=== PATIENT | male | born 1985 | race Caucasian/White ===

== ENCOUNTER 2016-10-08 16:18 | Emergency (ER) | payer OTHER ==
[~2016-10-08] VITALS: Ht 180.3 cm; Wt 80.7 kg
[~2016-10-08 16:18] MED LIST: AMOXICILLIN500 MG PO; NOHOMEMEDS; PERCOCET 5/31 TABLET PO; TYLENOL WITH C1 EACH PO; ULTRAM50 MG PO; VOLTAREN 1% GE100 GM PO
[2016-10-08] MEDS ORDERED: FLEXERIL10 MG PO (18:29)
[2016-10-08] MEDS ORDERED: MOTRIN800 MG PO (18:30)
[2016-10-08 18:46] VITALS: BP 164/99
== END 2016-10-08 18:47 | disposition home or self-care (01) ==
LOC: EME 16:18
DX: S20.211A Contusion of right front wall of thorax, initial encounter (principal); S50.01XA Contusion of right elbow, initial encounter; W11.XXXA Fall on and from ladder, initial encounter; F17.200 Nicotine dependence, unspecified, uncomplicated
CPT/HCPCS: 71101; 73080; 99281; 99284

== ENCOUNTER 2017-08-23 13:47 | Emergency (ER) | payer OTHER ==
[~2017-08-23] VITALS: Ht 170.2 cm; Wt 76.2 kg
[~2017-08-23 13:47] MED LIST changes: +FLEXERIL10 MG PO; +MOTRIN800 MG PO
[2017-08-23] MEDS ORDERED: MOTRIN800 MG PO (16:00)
[2017-08-23] MEDS ORDERED: ULTRAM50 MG PO (16:01)
[2017-08-23 17:00] VITALS: BP 137/84
== END 2017-08-23 17:03 | disposition home or self-care (01) ==
LOC: EME 13:47
PROC: 2W3LX1Z Immobilization of Right Lower Extremity using Splint (ICD-10-PCS; principal; 2017-08-23)
DX: S82.831A Other fracture of upper and lower end of right fibula, initial encounter for closed fracture (principal); Y93.72 Activity, wrestling; F17.200 Nicotine dependence, unspecified, uncomplicated; Z88.6 Allergy status to analgesic agent
CPT/HCPCS: 73610; 99281; 99282